=== PATIENT | male | born 1955 | race Caucasian/White ===

== ENCOUNTER 2017-01-02 08:09 | Day surgery (SDC) | payer OTHER ==
[2017-01-02] VITALS (11 sets, daily range): BP systolic 121–176; BP diastolic 69–85; Ht 170.2 cm; Wt 84.1 kg
[~2017-01-02] VITALS: Ht 170.2 cm; Wt 84.1 kg
[~2017-01-02 08:09] MED LIST: BAYER CHEWABLE81 MG PO; HYZAAR 50-12.51 TAB PO
[2017-01-02 09:30] LABS: HEMATOCRIT 41.5 % (42.0-54.0); HEMOGLOBIN 14.4 g/dL (13.5-17.5); MCH 29.8 pg (26.0-34.0); MCHC 34.7 g/dL (31.0-37.0); MCV 85.9 fL (80.0-100.0); MEAN PLATELET VOLUME 10.3 fL (7.4-10.4); RBC 4.83 10x6/uL (4.20-6.10); RDW 12.2 % (11.5-14.5); WBC 4.2 10x3/uL (4.8-10.8)
[2017-01-02 09:35] LABS: CALC OSMOLALITY 281 mosm/kg (275-300); CALCIUM 8.3 mg/dL (8.5-10.1); CARBON DIOXIDE 27.8 mmol/L (21.0-32.0); CHLORIDE - SERUM 105 mmol/L (98-107); CREATININE - SERUM 0.9 mg/dL (0.6-1.3); GLUCOSE 95 mg/dL (74-106); POTASSIUM - SERUM 3.6 mmol/L (3.5-5.1); SODIUM 141 mmol/L (136-145); UREA NITROGEN 15 mg/dL (7-18); eGFR NON AFRICAN AMERICAN > 90 mL/min (90-120)
--- NOTE | 2017-01-02 16:18 | NUR ---
EMPTIED 25ML FROM RUDY DRAIN
--- NOTE | 2017-01-02 16:30 | NUR ---
RECEIVED PT FROM OR, PT IN PAIN OF A 10 ON A SCALE OF 1-10. OR NURSE ROSS SIGNED POST OP VITALS. CALL PLACED TO FOR PAIN MEDICATION ORDER. WILL CONTINUE TO MONITOR.
--- NOTE | 2017-01-02 20:00 | NUR ---
ASSESSMENT PER FLOWSHEET. ANTERIOR NECK INCISION C/D/I. WITH STERI STRIPS.AND RUDY DRAIN IN PLACE COMPRESSED WITH SEROUS DRAINAGE. URINAL IN PLACE TO VOID. AT BEDSIDE. SALINE LOCK PATENT LEFT ARM. HOB UP 35 DEGREES WITH HEAD FLEXED WITH PILLOW. SR UP X2 CALL LIGHT WITHIN REACH.
--- NOTE | 2017-01-02 21:00 | NUR ---
VOIDED 300CC'S IN URINAL.
--- NOTE | 2017-01-02 21:45 | NUR ---
C/O PAIN INCISIONAL SITE. NORCO 5MG TAB X2 PO GIVEN FOR PAIN CONTROL. SCD'S ON.
[2017-01-03] VITALS: BP 137/70
--- NOTE | 2017-01-03 | NUR ---
RESTING AT THIS TIME RUDY DRAIN EMPTIED 50CC'S OUT.
--- NOTE | 2017-01-03 01:45 | NUR ---
C/O INCISIONAL PAIN IN NECK. RATES PAIN LEVEL #8. DILAUDID 1MG IVP GIVEN FOR PAIN CONTROL.
--- NOTE | 2017-01-03 06:30 | NUR ---
C/O PAIN INCISIONAL AREA UNRELEIVED WITH NORCO DILAUDID 1MG IVP GIVEN FOR PAIN CONTROL.
--- NOTE | 2017-01-03 07:15 | NUR ---
REPORT RECEIVED FROM SHOP ASSISTANT NURSE. CALL LIGHT IN REACH.
[2017-01-03 08:10] VITALS: BP 146/71
--- NOTE | 2017-01-03 08:25 | NUR ---
ASSESSMENT COMPLETED. SCDs TO BLE. CALL LIGHT IN REACH. WILL CONTINUE WITH PLAN OF CARE.
--- NOTE | 2017-01-03 10:32 | NUR ---
C/O PAIN. CHRISTIE PO. IN ROOM. CALL LIGHT IN REACH.
[2017-01-03 11:32] VITALS: BP 125/70
--- NOTE | 2017-01-03 12:19 | NUR ---
BP MED AND DILAUDID IVP ADMINISTERED PER STUDENT NURSE AND INSTRUCTOR.
--- NOTE | 2017-01-03 14:20 | NUR ---
NO NEEDS VOICED AT THIS TIME. CALL LIGHT IN REACH.
--- NOTE | 2017-01-03 16:15 | NUR ---
C/O PAIN OF 8. NORCO PO. IN ROOM. CALL LIGHT IN REACH.
[2017-01-03 16:44] VITALS: BP 138/72
--- NOTE | 2017-01-03 18:36 | NUR ---
DILAUDID 1 MG SIVP PER C/O PAIN. NO OTHER CHANGES IN INITIAL ASSESSMENT. REFUSES SCDs. IN ROOM. CALL LIGHT IN REACH. WILL CONTINUE WITH PLAN OF CARE.
[2017-01-03 19:00] VITALS: BP 130/61
--- NOTE | 2017-01-03 20:00 | NUR ---
ASSESSMENT PER FLOWSHEET. ANTERIOR NECK INCISION C/D/I WITH RUDY DRAIN PATENT AND COMPRESSED. SMALL AMOUNT SEROUS DRAINAGE NOTED. IN ROOM. SALINE LOCK PATENT TO LEFT ARM DENIES NEEDS. NO C/O PAIN OR DISCOMFORT. UP WITH HELP OF TO BR VOIDS WELL.
--- NOTE | 2017-01-03 22:00 | NUR ---
RESTING QUIETLY DENIES NEEDS.
--- NOTE | 2017-01-04 | NUR ---
EYES CLOSED RESPIRATIONS WITH EASE AND UNLABORED.
--- NOTE | 2017-01-04 02:02 | NUR ---
EYES CLOSED RESPIRATIONS WITH EASE AND UNLABORED. DENIES NEEDS.
[2017-01-04 04:00] VITALS: BP 126/68
--- NOTE | 2017-01-04 08:05 | NUR ---
PRN NORCO ADMINISTERED FOR PAIN /10 AT THIS TIME. MEDICATION CRUSHED AND ADMINISTERED IN APPLESAUCE. SCHEDULED MEDICATIONS ADMINISTERED AT THIS TIME WELL. ASSESSMENT PERFORMED PER FLOWSHEET. AT BEDSIDE. RUDY DRAIN TO NECK PATENT WITH BULB COMPRESSED. DENIES FURTHER NEEDS AT THIS TIME. AMBULATES AND SELF POSITIONS FOR COMFORT. CALL LIGHT IN REACH, WILL CONTINUE WITH PLAN OF CARE.
[2017-01-04 08:24] VITALS: BP 138/66
--- NOTE | 2017-01-04 11:14 | NUR ---
PRN DILAUDID ADMINSITERED FOR PAIN 7/10 INCISIONALLY. PROVIDED PT WITH ICE PACK TO LAY OVER SITE. 10 ML OF BLOODY DRAINAGE EMPTIED FROM RUDY DRAIN. SITE C/D/I AND BULB COMPRESSED. DENIES FURTHER NEEDS AT PRESENT TIME. CALL LIGHT IN REACH, WILL CONTINUE WITH PLAN OF CARE.
[2017-01-04 11:59] VITALS: BP 136/72
--- NOTE | 2017-01-04 13:07 | OP ---
PATIENT NAME: JULIETTE INFANTE MEDICAL RECORD: [id number] :53 LOCATION:[id number] ADMISSION DATE: SURGEON: DOMINIK MELGAR MD DATE OF OPERATION: 01/02/2017 PREOPERATIVE DIAGNOSIS: Left dominant thyroid nodule. POSTOPERATIVE DIAGNOSIS: Left dominant thyroid nodule. PROCEDURE: Total thyroidectomy. SURGEON: Dominik Melgar MD ANESTHESIA: General orotracheal. BLOOD LOSS: Less than 20 cc. SPECIMENS: 1. Left thyroid nodule. 2. Possible lymph node. 3. Left thyroid lobe. 4. Right thyroid lobe. DRAIN: A single drain RUDY through a separate stab incision inferior to the wound. COMPLICATIONS: None. DISPOSITION: Recovery stable. FINDINGS: The left thyroid nodule was significantly larger than reported on ultrasound. Ultrasound report was about 3-3.5 cm, but in largest dimension, in fact, the nodule was about 6 cm in size. Frozen section noted almost in follicular cells, almost no colloid. Could not definitively diagnose a follicular carcinoma, but I felt like a suspicious to proceed with a total thyroidectomy based on the nodule size and the fact that there was a totally dominant nodule, the rest of the thyroid was completely unremarkable. DESCRIPTION OF PROCEDURE: The patient was brought to the operating room and placed in supine position, sedated and intubated by anesthesia. He was positioned, prepped and draped in the usual fashion for thyroid surgery. The area for the incision was injected with 1 cc of 1% lidocaine 1:100,000 epinephrine. A horizontal incision was made with a 15 blade. His cricoid was very low, basically, right at the sternal notch, so a low skin crease in the neck was chosen for the incision. This was taken down through the platysma. Flaps were elevated inferiorly and superiorly and 4 separate 2-0 silk stick ties were used as retraction sutures. The fascia was divided in the midline, multiple layers using a tonsil clamp and cautery. This was taken down to the thyroid gland and then strap muscles were dissected off bluntly exposing the left thyroid lobe. The left thyroid lobe appeared normal, so I dissected off the right side as well. I then dissected the inferior portion of the gland, I tried to palpate this nodule, but it was extremely low, I dissected away some fascia from that area and really the nodule actually did not appear to be connected to the thyroid gland at all. It was dissected out in the mediastinum mostly with just blunt dissection with a finger and lifted it out. It was lying OPERATIVE REPORT [id number] NARESH,JULIETTE right on top of that aorta inferiorly, very deep in the mediastinum. It was lifted out, dissected off a little bit of fascia and some small vessels, but it was not in contact really with the left thyroid lobe. I sent this for frozen and it was indeed follicular cells, so it was indeed thyroid tissue, but there was hardly any colloid. There were calcifications within it and it was distinctly larger than reported on ultrasound. I then found what appeared to be a small white lymph node above it, but that reportedly follicular cells as well and was not a lymph node. I felt like it was a thyroid nodule. I then dissected down and found the inferior parathyroid and the recurrent laryngeal nerve on the left side, dissected superiorly. I then took down the superior lobe as well, ligating vessels with 2-0 silk ties, rotating the gland medially, dissecting through Frias's ligament and then dividing it from the trachea and from opposite lobe. This was sent for permanent only. The right side was then dissected out, again, starting inferiorly, identifying the recurrent laryngeal nerve. There were no nodules at all. The thyroid, both left and right, were completely normal without any nodularity. Again, the superior lobe was taken down, ligating vessels with 2-0 silk ties, rotating the gland medially and dissecting off the superior parathyroid and inferior parathyroid. Only the superior parathyroid was identified and preserved on the left side. I did not see the inferior one with certainty, this right side was dissected off the trachea, dissected off Frias's ligament using bipolar cautery and knife and then the right lobe was sent as well. The wound was irrigated, carefully inspected, some tiny oozing vessels were controlled with bipolar cautery, but really it was completely clean. There really was not much bleeding during the case at all. The 10-Pashto RUDY drain was placed through a separate stab incision inferior to the wound and folded across the trachea, the strap muscles were reapproximated loosely with interrupted 3-0 Vicryl. The platysma layer was closed with interrupted 3-0 Vicryl and the skin was closed with running subcuticular 5-0 Prolene. Steri-Strips and Mastisol were applied. He was awakened, extubated, and transported to recovery in good condition. No complications. His count was correct and his voice was perfectly normal in recovery. TRANSINT:[id number] Voice Confirmation ID: [id number] DOCUMENT ID: [id number] DOMINIK MELGAR MD at 1307 CC: [id number] DICTATION DATE: 01/02/17 1609 VICE PRESIDENT OF RECRUITING: 01/03/17 0122 [place] [id number] [place] [id number]
--- NOTE | 2017-01-04 13:07 | HP ---
PATIENT: JULIETTE INFANTE MEDICAL RECORD: [id number] ACCOUNT: [id number] LOCATION:[facility] : 53 ADMISSION DATE: 01/02/17 HISTORY AND PHYSICAL EXAMINATION Preoperative History and Physical HISTORY OF PRESENT ILLNESS: Mr. Infante is a 61-year-old male. He was found to have a thyroid nodule on ultrasound. He is being admitted for left thyroid lobectomy with possible total thyroidectomy. PAST MEDICAL HISTORY: Includes hypertension and reflux. PAST SURGICAL HISTORY: Includes bilateral carpal tunnel surgery, kidney stone, and hernia repair. CURRENT MEDICATIONS: Include Prilosec and losartan. ALLERGIES: No known drug allergies. PHYSICAL EXAMINATION: GENERAL: He is healthy-appearing and developmentally normal. FACE: Normal, symmetric, no lesions. EYES: Sclerae and conjunctivae are normal. EARS: Canals and TMs are normal. NOSE: No mass, polyps or drainage. ORAL CAVITY AND OROPHARYNX: Tongue protrudes in midline. Pharynx is normal. NECK: No masses, no adenopathy. I could barely palpate a left thyroid nodule. His thyroid is very low behind his clavicle. There is no other masses. NEUROLOGIC: Cranial nerves are intact. CHEST: Clear. CARDIOVASCULAR: Regular rate and rhythm. No murmur. EXTREMITIES: Normal. DIAGNOSTIC DATA: Ultrasound shows a solitary 3.3 cm nodule in the left lower thyroid. No other nodules. IMPRESSION: Solitary greater than 3 cm nodule in a 61-year-old male. PLAN: Left thyroidectomy with possible total thyroidectomy depending on frozen section findings. TRANSINT:[id number] Voice Confirmation ID: [id number] DOCUMENT ID: [id number] DOMINIK MELGAR MD at 1307 CC: [id number] DICTATION DATE: 12/30/16912 HOT ROOM ATTENDANT: 12/30/16 0931 REG [facility] [address] [place] [address]
[2017-01-04] MEDS ORDERED: PERCOCET 5-3251 TAB PO (13:57)
--- NOTE | 2017-01-04 14:20 | NUR ---
DISCHARGE PAPERWORK REVIEWED WITH PT AND HIS SPOUSE AT THIS TIME. IV TO LEFT ARM D/C WITH CATH TIP INTACT. PRESCRIPTION GIVEN TO PT. DENIES QUESTIONS OR CONCERNS. WILL D/C HOME WITH .
== END 2017-01-04 14:20 | disposition home or self-care (01) ==
LOC: D.OPS 08:09 → D.PAN 10:30 → D.MS 16:25 → D.OPS 01-04 14:20
PROVIDERS: Anesthesiology
DX: D34 Benign neoplasm of thyroid gland (principal); I10 Essential (primary) hypertension; K21.9 Gastro-esophageal reflux disease without esophagitis; Z79.899 Other long term (current) drug therapy